=== PATIENT | female | born 1995 | race Caucasian/White ===

== ENCOUNTER 2022-12-20 18:40 | Emergency (ER) | payer OTHER ==
[~2022-12-20] VITALS: Ht 160 cm; Wt 56.2 kg
--- NOTE | 2022-12-20 18:57 | NUR ---
27 years old female c/o left upper rib pain for few months, no sob no cp.
--- NOTE | 2022-12-20 19:07 | NUR ---
Pt. in bed with family at bedside.
[2022-12-20 19:16] LABS: *BILIRUBIN,URIN NEGATIVE (NEGATIVE); *BLOOD, URINE NEGATIVE (NEGATIVE); *CLARITY,URINE CLEAR (CLEAR); *COLOR,URINE YELLOW (YELLOW); *KETONES,URINE NEGATIVE (NEGATIVE); *UROBILINOGEN,URINE 0.2 E.U./dl (NORMAL); LEUKOCYTE ESTERASE ,URINE NEGATIVE (NEGATIVE); NITRITE, URINE NEGATIVE (NEGATIVE); UGLUCOSE NEGATIVE (NEGATIVE)
[2022-12-20 19:17] LABS: *URINE HCG, QUAL NEG (NEGATIVE)
[2022-12-20 19:19] LABS: HEMATOCRIT 42.1 % (31.2-41.9); MEAN CORPUSCULAR HEMOGLOBIN 27.6 uug (24.7-32.8); MEAN CORPUSCULAR VOLUME 84.9 fL (75.5-95.3); PLATELET COUNT (AUTO) 229 K/uL (179-408)
[2022-12-20 19:27] LABS: CREATININE 0.8 mg/dL (0.6-1.3); POTASSIUM 3.7 mmol/L (3.5-5.1)
--- NOTE | 2022-12-20 19:32 | NUR ---
xray in process
--- NOTE | 2022-12-20 20:23 | NUR ---
Patient discharged to home in stable condition. Written and verbal after care instructions given. Patient verbalizes understanding of instructions. Stressed follow up or return to ER for worsening s/s.
[2022-12-20 20:24] VITALS: BP 118/80
== END 2022-12-20 20:24 | disposition home or self-care (01) ==
LOC: ER 18:47
DX: K59.89 Other specified functional intestinal disorders (principal); Z86.19 Personal history of other infectious and parasitic diseases
CPT/HCPCS: 36415; 74018; 84703; 85025; A4663